=== PATIENT | male | born 1950 | race Caucasian/White ===

== ENCOUNTER 2016-12-15 11:34 | Outpatient (CLI) | payer MEDICARE | END 2016-12-15 11:35 | disposition home or self-care (01) | DX: M16.0 Bilateral primary osteoarthritis of hip (principal); M25.552 Pain in left hip; M25.551 Pain in right hip; M24.452 Recurrent dislocation, left hip; M24.451 Recurrent dislocation, right hip ==

== ENCOUNTER 2017-02-07 10:18 | Outpatient (CLI) | payer MEDICARE | END 2017-02-07 10:19 | disposition home or self-care (01) | DX: M87.052 Idiopathic aseptic necrosis of left femur (principal); M25.551 Pain in right hip; M87.051 Idiopathic aseptic necrosis of right femur ==

== ENCOUNTER 2018-09-21 16:08 | Outpatient (CLI) | payer MEDICARE | END 2018-09-21 16:09 | disposition E | LOC: EMS 16:08 | PROVIDERS: ATTEND Surgery ==